=== PATIENT | male | born 1955 | race African-American/Black ===

== ENCOUNTER 2017-07-01 15:56 | Inpatient (IN) ==
[2017-07-01] MEDS ORDERED: THIAMINE INJ 100 MG, FOLIC ACID INJ 1 MG, MULTIVITAMIN INJ 10 ML in SODIUM CHLORIDE 0.4... IV ONE (16:14)
[2017-07-01 16:37] LABS: Basophils % 0.1 % (0.0-0.8); Hematocrit 33.7 VOL% (42.0-52.0); Hemoglobin 11.2 GM/DL (14.0-18.0); Immature Granulocytes % 0.5 %; Immature Granulocytes Absolute 0.04 #; Lymphocytes # 1.5 10*3/uL (1.4-4.0); Lymphocytes % 17.8 % (21.2-54.2); Mean Corpuscular HGB Conc 33.2 GM/DL (32-36); Mean Corpuscular Hemoglobin 25 PG (27-34); Mean Corpuscular Volume 75.2 FL (87-102); Mean Platelet Volume 9.7 FL (9.6-12.0); Monocytes # 1.6 10*3/uL (0.11-0.8); Neutrophils # 5.4 10*3/uL (1.4-7.4); Neutrophils % 62.6 % (38.7-73.9); Platelet Count 165 T/CUMM (130-400); Red Blood Count 4.48 MC/CUMM (3.8-5.5); Red Cell Distribution Width 16.5 % (9.3-17.3); White Blood Count 8.6 T/CUMM (4-12)
[2017-07-01 16:55] LABS: Barbiturates Screen,Urine Negative (Negative); Benzodiazepines Screen,Urine Negative (Negative); Cannabinoid Screen,Urine Negative (Negative); Opiate Screen,Urine Negative (Negative); Phencyclidine Screen,Urine Negative (Negative)
[2017-07-01 17:11] LABS: Blood Urea Nitrogen 20 MG/DL (7-18); Calcium 7.3 MG/DL (8.5-10.1); Glucose 121 MG/DL (74-106); Magnesium 1.5 MG/DL (1.8-2.4); Osmolality,Calculated 273.1 MOS/KG (273-304); Potassium 4.5 MMOL/L (3.5-5.1); Sodium 135 MMOL/L (136-145)
[2017-07-01 17:24] LABS: Band Neutrophils 3 % (0-10); Hypochromasia 1+; Lymphocytes 19 % (20-55); Platelet Estimate Normal; Segmented Neutrophils 67 % (50-85); Total Cells Counted 100
[2017-07-01 17:25] LABS: Microcytosis 1+
[2017-07-01] MEDS ORDERED: ACETAMINOPHEN 325 MG TABLET PO PRN (18:53)
[2017-07-01] MEDS ORDERED: ALBUTEROL 2.5 MG/3 ML NEB RESP TX PRN (18:53)
[2017-07-01] MEDS ORDERED: ONDANSETRON 4 MG/2 ML VIAL IV PRN (18:53)
[2017-07-01] MEDS ORDERED: PANTOPRAZOLE 40 MG VIAL IV SCH (19:00)
[2017-07-01] MEDS ORDERED: MAGNESIUM SULF RIDER 2 GM in PREMIX 1 EACH IV ONE (19:01)
[2017-07-01] MEDS ORDERED: GLUCAGON 1 MG VIAL IM PRN (19:03)
[2017-07-01] MEDS ORDERED: DEXTROSE 50% 25 GM/50 ML VIAL IV PRN (19:03)
--- NOTE | 2017-07-01 19:07 | Hospitalist History & Physical ---
Assessment and Plan (1) Metabolic acidosis Status: Acute Current Visit: No (2) Alcohol dependence Status: Chronic Current Visit: No (3) Diabetes mellitus Status: Chronic Current Visit: No (4) Hypertension Status: Chronic Current Visit: No (5) High anion gap metabolic acidosis Status: Resolved Current Visit: No (6) Acute kidney injury Status: Acute Current Visit: Yes (7) Dehydration Status: Acute Current Visit: Yes (8) Gastroenteritis Status: Acute Assessment and plan: Our plan for this patient will be admitting him to our service. He has a high anion gap acidosis. I will go to transfer him to the unit and monitor serial BMPs. On culture his stool if he has diarrhea again. We will repeat check labs and hopefully his acidosis and dehydration will resolve. Accu-Cheks before meals and at bedtime clear liquid diet. Since is complaining about these symptoms of vision changes I will get a CT scan of his head. Current Visit: Yes History of Present Illness Chief complaint: Nausea vomiting diarrhea History of present illness: Mr. Zuluaga is a 61 year old male with past medical history significant for starvation ketosis diabetes hypertension alcohol abuse who is in his normal state of health till yesterday. Patient reports that he got steak and started throwing up. He said he threw up all night long had diarrhea. He has since become dehydrated is a much vague complaints of chest pain after throwing up approximately 50 times. He says he has some vision changes at times. Patient cleaned himself up he is very weak and called EMS. Patient found to have multiple out lab abnormalities. I was consulted to admit him. Patient's going to go to alcohol rehab once he is discharged from this hospitalization. Home Medications Medication Instructions Recorded Confirmed Type Lisinopril 1 tablet PO DAILY 09/19/15 01/21/16 History Metformin HCl 1 tablet PO BID 09/19/15 01/21/16 History HYDROcodone/ACETAMIN 10-325 [[place] 1 tablet PO BID 10/16/15 01/21/16 History 10-325] Morphine ER Tab [Ms Contin] 15 mg PO BID 10/16/15 01/21/16 History Ondansetron [Ondansetron Odt] 4 mg PO Q4H PRN #10 tab.rapdis 03/07/16 Rx Colchicine [Colcrys] 0.6 mg PO DAILY #30 tablet 04/26/16 Rx chlordiazePOXIDE [Librium] 10 mg PO QID #21 capsule 11/29/16 Rx Allergies Allergy/AdvReac Type Severity Reaction Status Date / Time ibuprofen Allergy Intermediate Swelling Verified 11/25/16 17:39 of Lip/Tongue/Throat Medical,Surgical,& Family Hx - Medical History Cardio: History of: Hypertension Endocrine: History of: Diabetes Mellitus (NIDDM) Rheumatology: History of;: Gout Other: History of: Miscellaneous Medical Problems (chronic pain) - Surgical History Abdominal Surgeries: Surgical HX of: Abdominal Surgery - Family History Family History: Reports;: Family Diabetes, Family Heart Disease, Family Hypertension - Social History Smoking Status: Smoker, status unknown Frequency of Alcohol Use: Occasionally Type of Drug Use: None 12 point system: reviewed and no additional remarkable complaints except as stated Exam - Constitutional Vitals: Period Temp Pulse Resp BP Sys/Paulino Pulse Ox Last 24 Hr 98 F 96-99 20-20 138-144/78-86 98-99 General appearance: no acute distress - Head Head exam: Present: normal inspection - Eye Eye exam: Present: EOMI Pupils: Present: SIMI - ENT ENT exam: Present: normal exam - Neck Neck exam: Present: normal inspection - Respiratory Respiratory exam: Present: chest wall tenderness - Cardiovascular Cardiovascular exam: Present: regular rate and rhythm - GI/Abdominal GI/Abdominal exam: Present: normal bowel sounds - Extremities Exam Extremities exam: Present: normal inspection - Back Exam Back exam: Present: normal inspection - Neurological Exam Neurological exam: Present: alert, oriented X3 - Psychiatric Psychiatric exam: Present: normal affect, anxious - Skin Skin exam: Present: normal color Results - Labs CBC & BMP: 07/01/17 16:11 07/01/17 16:11
--- NOTE | 2017-07-01 19:08 | Emergency Department Note ---
Butch Traylor Brooke, am scribing for, and in the presence of, Sanjeev Poole M.D. 16:06. Virgilio Traylor Howard T, M.D., personally performed the services described in this documentation, ascribed by Shellie Rae in my presence, and it is both accurate and complete [id number] . Arrival - Arrival Chief Complaint: Nausea/Vomiting/Diarrhea Stated Complaint: nausea, vomitting and diarrhea Limitations: No Limitations Source: Patient, EMS, RN Notes Reviewed Time Seen by Provider: 07/01/17 15:57 - History of Present Illness HPI Narrative: Patient is a 61 year old male brought into the ED by EMS with c/o chest pain, vomiting, diarrhea, and weakness. Patient says around 0000, last night, "a friend" gave him some "alcohol to drink" and he says he started "shaking all over, went blind, and then started hurting in his chest and abdomen." His chest pain is located across the center of his chest. Patient says he has had about "50" episodes of vomiting and diarrhea. He says his stool is "dark" but there is no blood in it. He says the blindness only lasted for about "four or five minutes." He says he was unable to get any sleep last night. He has had similar symptoms, in the past, after drinking alcohol, and states "the doctor told me I had meth and antifreeze in me." Patient says he does drink alcohol about "two times a week." He has PMHx of HTN, NIDDM, and gout. Allergies/Adverse Reactions: Allergies Allergy/AdvReac Type Severity Reaction Status Date / Time ibuprofen Allergy Intermediate Swelling Verified 11/25/16 17:39 of Lip/Tongue/Throat Home Medications: Home Medications Medication Instructions Recorded Confirmed Type Lisinopril 1 tablet PO DAILY 09/19/15 01/21/16 History Metformin HCl 1 tablet PO BID 09/19/15 01/21/16 History HYDROcodone/ACETAMIN 10-325 [[place] 1 tablet PO BID 10/16/15 01/21/16 History 10-325] Morphine ER Tab [Ms Contin] 15 mg PO BID 10/16/15 01/21/16 History Ondansetron [Ondansetron Odt] 4 mg PO Q4H PRN #10 tab.rapdis 03/07/16 Rx Colchicine [Colcrys] 0.6 mg PO DAILY #30 tablet 04/26/16 Rx chlordiazePOXIDE [Librium] 10 mg PO QID #21 capsule 11/29/16 Rx Review of System - Review of System 12 point system: reviewed and no additional remarkable complaints except as stated - Review of System Constitutional: Absent: fever Eyes: Present: vision change (temporary blindness) Respiratory: Absent: respiratory distress Cardiovascular: Present: chest pain Gastrointestinal: Present: abdominal pain, nausea, vomiting, diarrhea. Absent: hematochezia Skin: Absent: rash Neurological: Present: weakness (generalized) Medical,Surgical,& Family Hx - Medical History Cardio: History of: Hypertension Endocrine: History of: Diabetes Mellitus (NIDDM) Rheumatology: History of;: Gout Other: History of: Miscellaneous Medical Problems (chronic pain) - Surgical History Abdominal Surgeries: Surgical HX of: Abdominal Surgery - Family History Family History: Reports;: Family Diabetes, Family Heart Disease, Family Hypertension - Social History Smoking Status: Smoker, status unknown Exam Vital Signs: Vital Signs Temperature 98 F 07/01/17 15:56 Pulse Rate 96 H 07/01/17 17:41 Respiratory Rate 20 07/01/17 17:41 Blood Pressure 138/86 07/01/17 17:41 O2 Sat by Pulse Oximetry 99 07/01/17 17:41 - General General appearance: alert, in no apparent distress - Head Head exam: Present: atraumatic, normocephalic - Eye Eye exam: Present: normal appearance, PERRL, EOMI - ENT ENT exam: Present: normal exam - Neck Neck exam: Present: normal inspection - Chest Chest inspection: Present: normal inspection, symmetric chest wall rise - Respiratory Respiratory exam: Present: normal lung sounds bilaterally - Cardiovascular Cardiovascular exam: Present: regular rate, normal rhythm, normal heart sounds - Abdominal Exam Abdominal exam: Present: soft, normal bowel sounds. Absent: distention, tenderness - Extremities Exam Extremities exam: Present: normal inspection - Back Exam Back exam: Present: normal inspection - Neurological Exam Neurological exam: Present: alert, oriented X3 - Psychiatric Psychiatric exam: Present: normal affect, normal mood - Skin Skin exam: Present: warm, dry, intact, normal color Course Course Narrative: Medical decision-making patient was evaluated by hospitalist for admission, history of alcoholic ketoacidosis actually in the ICU in the past, creatinine is up and appears acidotic but otherwise stable probably needs some fluids and close observation and rehydration overnight. Results - Labs CBC & BMP: 07/01/17 16:11 07/01/17 16:11 Lab Results: I have reviewed the patients labs Labs: Laboratory Tests 07/01/17 16:11 Urine Opiates Screen Negative Ur Barbiturates Screen Negative Ur Phencyclidine Scrn Negative U Amphetamine/Methamph Negative U Benzodiazepines Scrn Negative U Cocaine Metab Screen Negative U Cannabinoids Screen Negative Laboratory Tests 07/01/17 07/01/17 07/01/17 16:11 16:11 17:11 Total Counted 100 Segmented Neutrophils 67 Band Neutrophils 3 Lymphocytes 19 L Monocytes 11 Platelet Estimate Normal Hypochromasia 1+ Microcytosis 1+ Sodium 135 L Potassium 4.5 Chloride 97 L Carbon Dioxide 18 L Anion Gap 24.5 H BUN 20 H Creatinine 2.80 H GFR Calculation 28 BUN/Creatinine Ratio 7.00 Glucose 121 H Calculated Osmolality 273.1 Calcium 7.3 L Magnesium 1.5 L b-Hydroxybutyric mmol/L 5.5 H Serum Alcohol < 15 L Disposition Clinical Impression: Diabetes mellitus, Alcohol dependence, Metabolic acidosis Case discussed with: patient Disposition: Still a Patient Condition: Stable Time of Disposition: 19:07
--- NOTE | 2017-07-01 20:56 | CT Report ---
CT head/brain wo con Indication: Vision changes. Specific vision changes are not specified. Comparison: None. Technique: CT of the brain was performed without administration of intravenous contrast. The CT examination was performed using one or more of the following dose reduction techniques: Automatic exposure control, adjustment of the mA and kV according to patient size, use of acute or iterative reconstruction techniques. Findings: There is no evidence of acute intracranial mass, hemorrhage, or infarction. Generalized cerebral atrophy is present. Areas of decreased attenuation within the periventricular white matter and cerebral white matter are present which could be compatible with microvascular ischemia. The basal cisterns are patent. No significant abnormality is demonstrated to involve the posterior fossa or cerebellum. Orbits and globes demonstrate no evidence of significant pathology. The paranasal sinuses are clear. No significant abnormality is demonstrated to involve the mastoid air cells. The calvarium and overlying soft tissues demonstrate no evidence of acute pathology. Impression: 1. No CT evidence of acute intracranial pathology. MRI brain without intravenous contrast administration is recommended for exclusion of acute ischemia. 07/01/2017 8:53 PM PROCEDURE INTERPRETED AT [facility] DEPARTMENT OF RADIOLOGY Final Report Signed by: Dr. Austin Reddy
[2017-07-01] MEDS: SODIUM ACETATE 50 MEQ in SODIUM CHLORIDE 0.45% 975 ML IV SCH (21:26)
[2017-07-01 21:31] LABS: Calcium 7.5 MG/DL (8.5-10.1); Potassium 4.3 MMOL/L (3.5-5.1)
[2017-07-01] MEDS: LORazepam 2 MG/1 ML VIAL IV PRN (21:59)
[2017-07-01] MEDS: INSULIN REGULAR 100 UNIT/ML SUBCUT SCH (23:01)
[2017-07-02 03:20] LABS: Calcium 7.6 MG/DL (8.5-10.1); Osmolality,Calculated 272.1 MOS/KG (273-304); Potassium 3.8 MMOL/L (3.5-5.1)
[2017-07-02] MEDS: SODIUM ACETATE 50 MEQ in SODIUM CHLORIDE 0.45% 975 ML IV SCH ×2 (03:30→06:43)
[2017-07-02 04:08] LABS: Folate > 24.0 NG/ML (5.4-24.0); Vitamin B12 814 PG/ML (211-911)
[2017-07-02] MEDS: INSULIN REGULAR 100 UNIT/ML SUBCUT SCH ×4 (07:47→21:00)
[2017-07-02] MEDS ORDERED: FOLIC ACID 1 MG TABLET PO SCH (09:00)
[2017-07-02] MEDS: THIAMINE 100 MG TABLET PO SCH (09:03)
[2017-07-02] MEDS: MULTIVITAMIN (CENTRUM) TABLET PO SCH (09:03)
--- NOTE | 2017-07-02 09:43 | Hospitalist Progress Note ---
Assessment and Plan (1) Acute kidney injury Status: Acute Assessment and plan: Continue IV fluids. Renal function improving. Likely secondary to dehydration. Current Visit: Yes (2) Dehydration Status: Acute Assessment and plan: Improving with IV fluids. Current Visit: Yes (3) Gastroenteritis Status: Resolved Assessment and plan: Symptoms appear to have resolved. Advance diet as tolerated. Current Visit: Yes (4) Diabetes mellitus Status: Chronic Assessment and plan: Metformin on hold secondary to acute kidney injury. Continue Accu-Cheks and sliding scale insulin before meals and at bedtime. Current Visit: Yes Qualifiers: Diabetes mellitus type: type 2 (5) Alcohol dependence Status: Chronic Current Visit: Yes Qualifiers: Substance use status: uncomplicated Qualified Code(s): F10.20 - Alcohol dependence, uncomplicated (6) Metabolic acidosis Status: Resolved Assessment and plan: Resolved with bicarb infusion overnight. Likely secondary to volume depletion and acute kidney injury. Precipitated by diarrhea and gastroenteritis. Current Visit: Yes (7) Vision changes Status: Acute Assessment and plan: Carotid ultrasound ordered to evaluate for carotid stenosis causing vision changes. No evidence of stroke on CT. Symptoms have resolved. This could all be related to his metabolic acidosis and acute kidney injury with dehydration secondary to gastroenteritis and diarrhea. Current Visit: Yes Hospitalist: Subjective Interval history: Patient seen and examined. No acute events overnight. Case discussed with nursing staff. Labs reviewed. Mr. Zuluaga was admitted to the intensive care unit with a metabolic acidosis and diarrhea. He has improved with IV fluid hydration. His acute kidney injury has also improved. His mental status has returned to normal. He is being transferred to the floor with repeat labs in the a.m. His symptoms have resolved. A carotid ultrasound has been ordered and results are pending Exam - Constitutional Vitals: Period Temp Pulse Resp BP Sys/Paulino Pulse Ox Last 24 Hr 97.5 F-99.1 F 77-109 15-23 95-148/48-86 94-100 Exam: Constitutional System: No distress. No tremulousness. Head: Normocephalic, atraumatic. Ears, Nose and Throat System: No pain or tenderness. No epistaxis or discharge Eyes System: Pupils equal, round, and reactive. Extraocular muscles intact. Neck: Supple, without adenopathy, No jugular venous distention. No thyromegaly, neck mass, or prior surgery apparent. Respiratory System: Chest clear to auscultation. Cardiovascular System: Heart with regular rate and rhythm. No murmur. GI System: Abdomen soft, nontender. Normo active bowel sounds present. Musculoskeletal System: limbs with no pedal edema. Full distal pulses. Neurological System: No discernable sensory deficit. No aphasia Psychiatric System: Conversation is rational Results - Labs CBC & BMP: 07/01/17 16:11 07/02/17 02:47 Lab Results: I have reviewed the past 24 hour labs - Diagnostic Findings Procedure: Chest x-ray: image reviewed by me, report reviewed by me, CT: image reviewed by me, report reviewed by me, Ultrasound: pending
[2017-07-02] MEDS: LACTATED RINGERS 1,000 ML IV SCH ×2 (09:55→19:21)
--- NOTE | 2017-07-02 10:16 | Ultrasound Report ---
US carotid duplex BI Indication: Vision changes. Comparison: None. Technique: Multiple longitudinal and transverse real-time sonographic images of the bilateral carotid arterial systems are obtained with grayscale, spectral, and color Doppler analysis. Findings: Peak systolic velocities within the right CCA, proximal ICA, and distal ICA are 78, 48, and 56 cm/s respectively. Peak systolic velocities within the left CCA, proximal ICA, and distal ICA are 65, 43, and 78 cm/s respectively. ICA/CCA ratios on the right and left are 0.7 and 0.2 respectively. Antegrade flow demonstrated within the bilateral vertebral arteries. Grayscale imaging demonstrates mild bilateral atherosclerotic plaque. IMPRESSION: No convincing sonographic evidence of significant (50% or greater) narrowing of either cervical internal carotid artery. Indirect NASCET criteria utilized. PROCEDURE INTERPRETED AT [facility] DEPARTMENT OF RADIOLOGY Final Report Signed by: Dr Juan Antonio Estrada
[2017-07-02] MEDS: LORazepam 2 MG/1 ML VIAL IV PRN (21:02)
[2017-07-03] MEDS: LACTATED RINGERS 1,000 ML IV SCH (05:21)
[2017-07-03 07:36] LABS: Calcium 8.3 MG/DL (8.5-10.1); Magnesium 1.7 MG/DL (1.8-2.4); Osmolality,Calculated 272.7 MOS/KG (273-304); Potassium 3.3 MMOL/L (3.5-5.1)
[2017-07-03] MEDS ORDERED: PANTOPRAZOLE 40 MG TABLET PO SCH (09:00)
[2017-07-03] MEDS ORDERED: traZODone 50 MG TABLET PO SCH (09:00)
[2017-07-03] MEDS: INSULIN REGULAR 100 UNIT/ML SUBCUT SCH ×2 (09:16→11:47)
[2017-07-03] MEDS: THIAMINE 100 MG TABLET PO SCH (09:18)
[2017-07-03] MEDS: MULTIVITAMIN (CENTRUM) TABLET PO SCH (09:18)
[2017-07-03] MEDS ORDERED: POTASSIUM CHLORIDE 20 MEQ TABLET PO ONE (09:59)
--- NOTE | 2017-07-03 10:04 | Discharge Summary ---
Hospital Course - Hospital Course Hospital Course: Mr Zuluaga presented with RICKY from dehydration following gastroenteritis. He feels much better after rehydration and his renal failure has resolved. He is an alcoholic and is interested in inpatient rehab at [facility]. We are waiting to know if they have a bed- he was accepted yesterday. His metabolic acidosis started from his diarrhea and was corrected with bicarb. He had normal carotid dopplers. His med list includes narcotics which he does not take any longer as the prescriptions ran out months ago, so he should not withdraw from them. - Time spent with patient Time with patient DS: Greater than 30 minutes (33 minutes spent discharge planning, exam, documentation, medicine reconciliation) Diagnosis - Discharge Diagnosis (1) Acute kidney injury Status: Resolved (2) Dehydration Status: Resolved (3) Gastroenteritis Status: Resolved (4) Diabetes mellitus Status: Chronic (5) Alcohol dependence Status: Chronic (6) Metabolic acidosis Status: Resolved (7) Vision changes Status: Resolved Specialty Discharge - Follow Up or Referrals Follow up with: Your, PCP [Other] (when out of alcohol rehab) Discharge Plan - Discharge Data Disposition: Disch/Xfer-Ip Rehab Fac Condition at Discharge: Stable Discharge Diet: advance to your usual diet Activity: resume usual activities as tolerated - Discharge Medications New Thiamine Tab [Vitamin B1 Tab] 100 mg PO DAILY tablet Multivitamin (Centrum) [Centrum Tab] 1 tablet PO DAILY tablet Pantoprazole Tab [Protonix Tab] 40 mg PO DAILY tablet Continue Metformin HCl 1 tablet PO BID Lisinopril 1 tablet PO DAILY Colchicine [Colcrys] 0.6 mg PO DAILY #30 tablet Trazodone HCl 100 mg PO DAILY Discontinued Morphine ER Tab [Ms Contin] 15 mg PO BID HYDROcodone/ACETAMIN 10-325 [[place] 10-325] 1 tablet PO BID Ondansetron [Ondansetron Odt] 4 mg PO Q4H PRN #10 tab.rapdis PRN Reason: Nausea chlordiazePOXIDE [Librium] 10 mg PO QID #21 capsule - Follow Up or Referral Follow Up: Your, PCP [Other] (when out of alcohol rehab) - Forms/Instructions Instructions: Dehydration (DC), Abuse of Alcohol (DC) Exam - Constitutional Vitals: Period Temp Pulse Resp BP Sys/Paulino Pulse Ox Last 24 Hr 98.0 F-99.2 F 80-99 15-22 107-154/66-81 93-100 General appearance: normal weight, no acute distress - Head Head exam: Present: normocephalic, atraumatic - Eye Eye exam: Present: EOMI. Absent: scleral icterus - Respiratory Respiratory exam: Present: clear to auscultation bilaterally - Cardiovascular Cardiovascular exam: Present: regular rate and rhythm - GI/Abdominal GI/Abdominal exam: Present: normal bowel sounds, soft. Absent: tenderness - Extremities Exam Extremities exam: Absent: edema Discharge Results Procedures and tests throughout hospitalization: Pending Orders 07/01/17 16:11 Ethylene Glycol Serum Stat 07/01/17 19:02 Stool Culture Routine Labs on day of discharge: Labs from last 24 hours 07/03/17 07/03/17 07/02/17 07:33 06:22 19:54 Sodium 138 Potassium 3.3 L Chloride 101 Carbon Dioxide 29 Anion Gap 11.3 BUN 6 L Creatinine 0.80 GFR Calculation 116 BUN/Creatinine Ratio 7.00 Glucose 99 POC Glucose 95 311 H Calculated Osmolality 272.7 L Calcium 8.3 L Magnesium 1.7 L 07/02/17 07/02/17 07/02/17 15:02 11:37 10:26 Sodium Potassium Chloride Carbon Dioxide Anion Gap BUN Creatinine GFR Calculation BUN/Creatinine Ratio Glucose POC Glucose 196 H 145 H 186 H Calculated Osmolality Calcium Magnesium DS: Provider Date of admission: 07/01/17 18:53 Primary care physician: . No PCP Attending physician on admission: Asim Disla MD Consults: 07/01/17 20:09 Consult to Dietitian [CONS] Routine Reason for Dietitian: Dietary Consult 07/02/17 08:19 Consult to Case Mgmt/Social Srvs [CONS] Routine Reason for Case Mgmt/Social Srvs: Other Consult Comment: pat request placement with [facility] for ETOH abuse Discharging clinician: Tanika Gibson MD
[2017-07-03 11:58] VITALS: BP 112/68
== END 2017-07-03 15:31 | DRG 683 ==
LOC: EDBD → EDUNIT# → N.ED 15:56 → SUATTDRO 18:53 → N.EDINP 18:53 → N.ICU 19:51 → N.5E 07-02 15:01
PROVIDERS: ADMIT Internal Medicine; ATTEND Internal Medicine

== ENCOUNTER 2018-03-11 12:03 | Inpatient (IN) ==
[2018-03-11 14:08] LABS: Basophils % 0.1 % (0.0-0.8); Hematocrit 46.1 VOL% (42.0-52.0); Hemoglobin 14.2 GM/DL (14.0-18.0); Immature Granulocytes % 0.9 %; Immature Granulocytes Absolute 0.17 #; Lymphocytes # 0.6 10*3/uL (1.4-4.0); Lymphocytes % 3.2 % (21.2-54.2); Mean Corpuscular HGB Conc 30.8 GM/DL (32-36); Mean Corpuscular Hemoglobin 19 PG (27-34); Mean Corpuscular Volume 61.3 FL (87-102); Mean Platelet Volume 9.3 FL (9.6-12.0); Monocytes # 1.1 10*3/uL (0.11-0.8); Monocytes % 5.9 % (1.7-12.7); Neutrophils # 16.6 10*3/uL (1.4-7.4); Neutrophils % 89.9 % (38.7-73.9); Platelet Count 330 T/CUMM (130-400); Red Blood Count 7.52 MC/CUMM (3.8-5.5); Red Cell Distribution Width 24.9 % (9.3-17.3); White Blood Count 18.5 T/CUMM (4-12)
[2018-03-11 14:16] LABS: Lymphocytes 1 % (20-55); Platelet Estimate Adequate; Segmented Neutrophils 93 % (50-85); Total Cells Counted 100
[2018-03-11 14:17] LABS: Giant Platelets Few; Hypochromasia 1+; Microcytosis 1+
[2018-03-11 14:24] LABS: Albumin 3.2 G/DL (3.4-5.0); Bilirubin,Total 0.9 MG/DL (0.2-1.0); Calcium 8.5 MG/DL (8.5-10.1); Osmolality,Calculated 288.9 MOS/KG (273-304); Total Protein 7.7 G/DL (6.4-8.3)
[2018-03-11] MEDS ORDERED: SODIUM CHLORIDE 0.9% 1,000 ML IV STA (14:42)
[2018-03-11] MEDS ORDERED: ONDANSETRON 4 MG/2 ML VIAL IV STA (14:42)
[2018-03-11] MEDS ORDERED: INSULIN REGULAR 100 UNIT/ML IV STA (14:42)
[2018-03-11] MEDS ORDERED: INSULIN REGULAR 100 UNIT/ML ONE (14:45)
[2018-03-11] MEDS ORDERED: FLUCONAZOLE INJ 200 MG in PREMIX 1 EACH IV ONE (14:51)
[2018-03-11] MEDS ORDERED: ONDANSETRON 4 MG/2 ML VIAL ONE (15:27)
[2018-03-11] MEDS ORDERED: ONDANSETRON 4 MG/2 ML VIAL IV PRN (15:56)
[2018-03-11] MEDS ORDERED: GLUCAGON 1 MG VIAL IM PRN ×2 (15:56)
[2018-03-11] MEDS ORDERED: DEXTROSE 50% 25 GM/50 ML VIAL IV PRN ×2 (15:56)
[2018-03-11] MEDS: INSULIN REGULAR 100 UNIT/ML SUBCUT SCH ×2 (19:55→20:20)
[2018-03-11] MEDS: metFORMIN 500 MG TABLET PO SCH (19:57)
[2018-03-11] MEDS: DEXAMETHASONE 4 MG TABLET PO SCH ×2 (19:58→20:20)
[2018-03-11] MEDS: THIAMINE 100 MG TABLET PO SCH (20:20)
[2018-03-11] MEDS: SODIUM CHLORIDE 0.9% 1,000 ML IV SCH (20:27)
[2018-03-11] MEDS ORDERED: INSULIN GLARGINE 100 UNIT/ML SUBCUT SCH (21:00)
[2018-03-11 22:11] LABS: Apearance,Urine CLEAR (Clear); Bilirubin,Urine Negative (Negative); Blood, Urine Small mg/dL (Negative); Glucose,Urine (UA) >=500 mg/dL (Negative); Ketones,Urine Negative (Negative); Nitrite,Urine Negative (Negative); Protein,Urine Negative; RBC,Urine 2 /HPF (0-4); Squamous Epithelial Cell,Urine Occasional /HPF (0-10); Urine Color Straw (Yellow); Urine Specific Gravity 1.022 (1.001-1.035); Urine Urobilinogen < 2.0 EU/DL (0.2-1.0); WBC,Urine <1 /HPF (0-6)
[2018-03-12] MEDS: SODIUM CHLORIDE 0.9% 1,000 ML IV SCH ×3 (05:15→22:33)
[2018-03-12 06:21] LABS: Basophils % 0.1 % (0.0-0.8); Hematocrit 39.2 VOL% (42.0-52.0); Hemoglobin 12.8 GM/DL (14.0-18.0); Immature Granulocytes % 0.8 %; Immature Granulocytes Absolute 0.11 #; Lymphocytes # 0.5 10*3/uL (1.4-4.0); Lymphocytes % 3.8 % (21.2-54.2); Mean Corpuscular HGB Conc 32.7 GM/DL (32-36); Mean Corpuscular Hemoglobin 19 PG (27-34); Mean Corpuscular Volume 59.1 FL (87-102); Mean Platelet Volume 9.9 FL (9.6-12.0); Monocytes # 0.7 10*3/uL (0.11-0.8); Neutrophils % 90.3 % (38.7-73.9); Platelet Count 244 T/CUMM (130-400); Red Blood Count 6.63 MC/CUMM (3.8-5.5); Red Cell Distribution Width 24.2 % (9.3-17.3); White Blood Count 13.3 T/CUMM (4-12)
[2018-03-12 06:40] LABS: Hypochromasia 2+; Lymphocytes 4 % (20-55); Microcytosis 1+; Segmented Neutrophils 91 % (50-85); Target Cells Slight; Total Cells Counted 100
[2018-03-12 06:41] LABS: Ovalocytes Slight; Platelet Estimate Normal
[2018-03-12 06:53] LABS: Albumin 2.5 G/DL (3.4-5.0); Bilirubin,Total 1.2 MG/DL (0.2-1.0); Osmolality,Calculated 281.2 MOS/KG (273-304); Potassium 4.8 MMOL/L (3.5-5.1); Total Protein 6.2 G/DL (6.4-8.3)
[2018-03-12] MEDS: PANTOPRAZOLE 40 MG TABLET PO SCH (08:42)
[2018-03-12] MEDS: metFORMIN 500 MG TABLET PO SCH ×2 (08:42→17:20)
[2018-03-12] MEDS: LISINOPRIL 2.5 MG TABLET PO SCH (08:42)
[2018-03-12] MEDS: THIAMINE 100 MG TABLET PO SCH ×2 (08:43→21:44)
[2018-03-12] MEDS: METOPROLOL SUCCINATE XL 25 MG TABLET PO SCH (08:43)
[2018-03-12] MEDS: GABAPENTIN 300 MG CAPSULE PO SCH (08:43)
[2018-03-12] MEDS: DEXAMETHASONE 4 MG TABLET PO SCH ×4 (08:43→21:44)
[2018-03-12] MEDS: INSULIN REGULAR 100 UNIT/ML SUBCUT SCH ×4 (08:43→20:26)
[2018-03-12] MEDS: FLUCONAZOLE INJ 200 MG in PREMIX 1 EACH IV SCH (16:07)
[2018-03-12] MEDS ORDERED: INSULIN GLARGINE 100 UNIT/ML SUBCUT SCH (21:00)
[2018-03-13] MEDS: SODIUM CHLORIDE 0.9% 1,000 ML IV SCH ×3 (06:24→23:36)
[2018-03-13] MEDS: INSULIN REGULAR 100 UNIT/ML SUBCUT SCH ×4 (08:55→21:17)
[2018-03-13] MEDS: DEXAMETHASONE 4 MG TABLET PO SCH ×4 (08:57→20:19)
[2018-03-13] MEDS: PANTOPRAZOLE 40 MG TABLET PO SCH (08:57)
[2018-03-13] MEDS: METOPROLOL SUCCINATE XL 25 MG TABLET PO SCH (08:57)
[2018-03-13] MEDS: THIAMINE 100 MG TABLET PO SCH ×2 (08:57→20:19)
[2018-03-13] MEDS: LISINOPRIL 2.5 MG TABLET PO SCH (08:57)
[2018-03-13] MEDS: metFORMIN 500 MG TABLET PO SCH ×2 (08:57→16:41)
[2018-03-13] MEDS: GABAPENTIN 300 MG CAPSULE PO SCH (08:57)
[2018-03-13] MEDS ORDERED: INSULIN NPH 100 UNIT/ML SUBCUT SCH (16:30)
[2018-03-13] MEDS: FLUCONAZOLE INJ 200 MG in PREMIX 1 EACH IV SCH (16:40)
[2018-03-13] MEDS: INSULIN NPH 100 UNIT/ML SUBCUT SCH (16:43)
[2018-03-13] MEDS: ZALEPLON 5 MG CAPSULE PO PRN (21:17)
[2018-03-14] MEDS: SODIUM CHLORIDE 0.9% 1,000 ML IV SCH ×3 (01:03→16:59)
[2018-03-14] MEDS: traMADol 50 MG TABLET PO PRN (05:02)
[2018-03-14 06:16] LABS: Calcium 7.8 MG/DL (8.5-10.1); Osmolality,Calculated 283.2 MOS/KG (273-304); Potassium 4.2 MMOL/L (3.5-5.1)
[2018-03-14] MEDS: INSULIN REGULAR 100 UNIT/ML SUBCUT SCH ×4 (08:22→21:26)
[2018-03-14] MEDS: INSULIN NPH 100 UNIT/ML SUBCUT SCH ×2 (08:22→16:59)
[2018-03-14] MEDS: metFORMIN 500 MG TABLET PO SCH ×2 (08:23→16:59)
[2018-03-14] MEDS: GABAPENTIN 300 MG CAPSULE PO SCH (08:23)
[2018-03-14] MEDS: DEXAMETHASONE 4 MG TABLET PO SCH ×2 (08:23→21:26)
[2018-03-14] MEDS: LISINOPRIL 2.5 MG TABLET PO SCH (08:24)
[2018-03-14] MEDS: METOPROLOL SUCCINATE XL 25 MG TABLET PO SCH (08:24)
[2018-03-14] MEDS: THIAMINE 100 MG TABLET PO SCH ×2 (08:24→22:55)
[2018-03-14] MEDS: PANTOPRAZOLE 40 MG TABLET PO SCH (08:24)
[2018-03-14] MEDS ORDERED: INSULIN NPH 100 UNIT/ML SUBCUT SCH (10:27)
[2018-03-14] MEDS: NICOTINE 14 MG/24 HR PATCH TRANSDERM SCH (13:02)
[2018-03-14] MEDS: MORPHINE ER 15 MG TABLET PO SCH ×2 (13:02→21:25)
[2018-03-14] MEDS: NYSTATIN 500,000 UNIT/5 ML UDCUP SWISH/SWAL SCH ×2 (16:00→21:26)
[2018-03-14] MEDS: FLUCONAZOLE INJ 200 MG in PREMIX 1 EACH IV SCH (16:00)
[2018-03-14] MEDS: ZALEPLON 5 MG CAPSULE PO PRN (21:26)
[2018-03-15] MEDS: SODIUM CHLORIDE 0.9% 1,000 ML IV SCH ×3 (01:08→17:10)
[2018-03-15] MEDS: metFORMIN 500 MG TABLET PO SCH ×2 (09:14→17:11)
[2018-03-15] MEDS: GABAPENTIN 300 MG CAPSULE PO SCH (09:14)
[2018-03-15] MEDS: LISINOPRIL 2.5 MG TABLET PO SCH (09:14)
[2018-03-15] MEDS: THIAMINE 100 MG TABLET PO SCH ×2 (09:14→21:35)
[2018-03-15] MEDS: METOPROLOL SUCCINATE XL 25 MG TABLET PO SCH (09:14)
[2018-03-15] MEDS: INSULIN REGULAR 100 UNIT/ML SUBCUT SCH ×4 (09:15→21:34)
[2018-03-15] MEDS: PANTOPRAZOLE 40 MG TABLET PO SCH (09:15)
[2018-03-15] MEDS: DEXAMETHASONE 4 MG TABLET PO SCH ×2 (09:15→21:35)
[2018-03-15] MEDS: NYSTATIN 500,000 UNIT/5 ML UDCUP SWISH/SWAL SCH ×4 (09:15→21:34)
[2018-03-15] MEDS: NICOTINE 14 MG/24 HR PATCH TRANSDERM SCH (09:15)
[2018-03-15] MEDS: MORPHINE ER 15 MG TABLET PO SCH ×2 (09:15→21:35)
[2018-03-15] MEDS: INSULIN NPH 100 UNIT/ML SUBCUT SCH ×2 (09:16→17:11)
[2018-03-15] MEDS: FLUCONAZOLE INJ 200 MG in PREMIX 1 EACH IV SCH (17:11)
[2018-03-16] MEDS: SODIUM CHLORIDE 0.9% 1,000 ML IV SCH ×2 (02:17→10:27)
[2018-03-16] MEDS: INSULIN REGULAR 100 UNIT/ML SUBCUT SCH ×4 (08:18→21:24)
[2018-03-16] MEDS: THIAMINE 100 MG TABLET PO SCH ×2 (09:37→21:24)
[2018-03-16] MEDS: GABAPENTIN 300 MG CAPSULE PO SCH (09:37)
[2018-03-16] MEDS: LISINOPRIL 2.5 MG TABLET PO SCH (09:37)
[2018-03-16] MEDS: DEXAMETHASONE 4 MG TABLET PO SCH ×2 (09:37→21:26)
[2018-03-16] MEDS: METOPROLOL SUCCINATE XL 25 MG TABLET PO SCH (09:37)
[2018-03-16] MEDS: NYSTATIN 500,000 UNIT/5 ML UDCUP SWISH/SWAL SCH ×4 (09:38→21:26)
[2018-03-16] MEDS: NICOTINE 14 MG/24 HR PATCH TRANSDERM SCH (09:38)
[2018-03-16] MEDS: PANTOPRAZOLE 40 MG TABLET PO SCH (09:38)
[2018-03-16] MEDS: INSULIN NPH 100 UNIT/ML SUBCUT SCH ×2 (09:39→17:44)
[2018-03-16] MEDS: MORPHINE ER 15 MG TABLET PO SCH ×2 (09:40→21:25)
[2018-03-16] MEDS: metFORMIN 500 MG TABLET PO SCH ×2 (09:43→17:45)
[2018-03-16] MEDS: LACTULOSE 20 GM/30 ML UDCUP PO SCH ×3 (13:12→22:16)
[2018-03-16] MEDS: ZALEPLON 5 MG CAPSULE PO PRN (21:25)
[2018-03-16] MEDS: POLYETHYLENE GLYCOL POWDER 17 GM PACK PO SCH (22:16)
[2018-03-16] MEDS: DOCUSATE SODIUM 100 MG CAPSULE PO SCH (22:17)
[2018-03-17] MEDS: LACTULOSE 20 GM/30 ML UDCUP PO SCH ×3 (00:20→08:42)
[2018-03-17] MEDS: traMADol 50 MG TABLET PO PRN (06:58)
[2018-03-17] MEDS: INSULIN REGULAR 100 UNIT/ML SUBCUT SCH (08:23)
[2018-03-17] MEDS: POLYETHYLENE GLYCOL POWDER 17 GM PACK PO SCH (08:31)
[2018-03-17] MEDS: METOPROLOL SUCCINATE XL 25 MG TABLET PO SCH (08:31)
[2018-03-17] MEDS: NYSTATIN 500,000 UNIT/5 ML UDCUP SWISH/SWAL SCH (08:31)
[2018-03-17] MEDS: metFORMIN 500 MG TABLET PO SCH (08:31)
[2018-03-17] MEDS: LISINOPRIL 2.5 MG TABLET PO SCH (08:31)
[2018-03-17] MEDS: PANTOPRAZOLE 40 MG TABLET PO SCH (08:32)
[2018-03-17] MEDS: THIAMINE 100 MG TABLET PO SCH (08:32)
[2018-03-17] MEDS: DEXAMETHASONE 4 MG TABLET PO SCH (08:32)
[2018-03-17] MEDS: GABAPENTIN 300 MG CAPSULE PO SCH (08:32)
[2018-03-17] MEDS: MORPHINE ER 15 MG TABLET PO SCH (08:32)
[2018-03-17] MEDS: DOCUSATE SODIUM 100 MG CAPSULE PO SCH (08:32)
[2018-03-17] MEDS: NICOTINE 14 MG/24 HR PATCH TRANSDERM SCH (08:33)
[2018-03-17] MEDS: INSULIN NPH 100 UNIT/ML SUBCUT SCH (08:40)
[2018-03-17] MEDS ORDERED: FLUCONAZOLE 200 MG TABLET PO SCH (09:00)
[2018-03-17] MEDS ORDERED: INSULIN NPH 100 UNIT/ML SUBCUT SCH (09:45)
[2018-03-17 12:03] VITALS: BP 158/99
== END 2018-03-17 12:50 | disposition home health service (06) | DRG 637 ==
LOC: N.ED 12:03 → N.EDINP 15:05 → N.4E 18:08
PROVIDERS: ADMIT Hospitalist; ATTEND Hospitalist

== ENCOUNTER 2018-07-22 20:20 | Inpatient (IN) ==
[2018-07-22] MEDS ORDERED: MEROPENEM 1,000 MG in SODIUM CHLORIDE 0.9% 100 ML IV STA (20:59)
[2018-07-22] MEDS ORDERED: SODIUM CHLORIDE 0.9% 1,000 ML IV STA ×2 (20:59→23:08)
[2018-07-22 22:41] LABS: Lactic Acid 4.9 MMOL/L (0.4-2.0)
[2018-07-22 22:50] LABS: INR 1.6; PT Patient Result 16.3 SECS; Partial Thromboplastin Time 36.7 SECS (0-40)
[2018-07-22 22:51] LABS: Alanine Aminotransferase 40 U/L (16-61); Albumin 2.4 G/DL (3.4-5.0); Alkaline Phosphatase 86 U/L (45-117); Aspartate Amino Transferase 92 U/L (0-37); Blood Urea Nitrogen 115 MG/DL (7-18); CKMB % 0.7 %; Calcium 8.4 MG/DL (8.5-10.1); Glucose 120 MG/DL (74-106); Osmolality,Calculated 316.4 MOS/KG (273-304); Sodium 140 MMOL/L (136-145)
[2018-07-22 22:58] LABS: Potassium 6.2 MMOL/L (3.5-5.1)
[2018-07-22] MEDS ORDERED: ALBUTEROL NEB SOLN 5 MG/ML 20 ML/BOTTLE CONT NEB STA (23:07)
[2018-07-22] MEDS ORDERED: INSULIN REGULAR 100 UNIT/ML IV STA (23:07)
[2018-07-22] MEDS ORDERED: DEXTROSE 50% 25 GM/50 ML VIAL IV STA (23:07)
[2018-07-22] MEDS ORDERED: CALCIUM CHLORIDE 1,000 MG/10 ML SYRINGE IV STA (23:07)
[2018-07-22 23:15] LABS: Ammonia < 10 UMOL/L (11-32)
[2018-07-22 23:43] LABS: Immature Granulocytes % 4.8 %; Immature Granulocytes Absolute 0.01 #; Lymphocytes # 0.1 10*3/uL (1.4-4.0); Lymphocytes % 57.1 % (21.2-54.2); Mean Corpuscular HGB Conc 31.6 GM/DL (32-36); Mean Corpuscular Hemoglobin 24 PG (27-34); Mean Corpuscular Volume 74.5 FL (87-102); Monocytes % 9.5 % (1.7-12.7); Neutrophils # 0.1 10*3/uL (1.4-7.4); Neutrophils % 28.6 % (38.7-73.9); Red Blood Count 2.04 MC/CUMM (3.8-5.5); Red Cell Distribution Width 18.3 % (9.3-17.3)
[2018-07-22 23:54] LABS: White Blood Count 0.2 T/CUMM (4-12)
[2018-07-22 23:55] LABS: Hematocrit 15.2 VOL% (42.0-52.0); Hemoglobin 4.8 GM/DL (14.0-18.0)
[2018-07-22 23:56] LABS: Platelet Count 7 T/CUMM (130-400)
[2018-07-23] MEDS ORDERED: ACETAMINOPHEN 325 MG TABLET PO PRN (00:03)
[2018-07-23] MEDS ORDERED: BISACODYL 5 MG TABLET PO PRN (00:03)
[2018-07-23 00:19] LABS: Apearance,Urine Slightly Hazy (Clear); Bacteria,Urine Occasional /HPF (Few); Bilirubin,Urine Negative (Negative); Blood, Urine Moderate mg/dL (Negative); Glucose,Urine (UA) Negative (Negative); Hyaline Casts,Urine 18 /LPF (0-3); Ketones,Urine Negative (Negative); Mucus,Urine Occasional /LPF (Occasional); Nitrite,Urine Negative (Negative); Protein,Urine 100 MG/DL; Squamous Epithelial Cell,Urine Occasional /HPF (0-10); Urine Color Yellow (Yellow); Urine Specific Gravity 1.016 (1.001-1.035); Urine Urobilinogen < 2.0 EU/DL (0.2-1.0); WBC,Urine 3 /HPF (0-6)
[2018-07-23] MEDS ORDERED: SODIUM CHLORIDE 0.9% 1,000 ML IV PRN (00:22)
[2018-07-23] MEDS ORDERED: MORPHINE ER 15 MG TABLET PO SCH (00:30)
[2018-07-23] MEDS ORDERED: DOCUSATE SODIUM 100 MG CAPSULE PO SCH (00:30)
[2018-07-23] MEDS ORDERED: DEXTROSE 50% 25 GM/50 ML SYRINGE IV ONE (00:54)
[2018-07-23] MEDS ORDERED: ACETAMINOPHEN 650 MG SUPP RECTAL ONE ×2 (01:06→01:30)
[2018-07-23 01:54] LABS: Burr Cells Few; Lymphocytes 79 % (20-55); Platelet Estimate Decreased; Segmented Neutrophils 19 % (50-85); Tear Drop Cells 1+; Total Cells Counted 100
[2018-07-23 01:56] LABS: Immature Granulocytes % 6.7 %; Immature Granulocytes Absolute 0.01 #; Lymphocytes # 0.1 10*3/uL (1.4-4.0); Lymphocytes % 66.7 % (21.2-54.2); Mean Corpuscular HGB Conc 31.3 GM/DL (32-36); Mean Corpuscular Hemoglobin 23 PG (27-34); Mean Corpuscular Volume 73.6 FL (87-102); Monocytes % 6.7 % (1.7-12.7); Neutrophils % 19.9 % (38.7-73.9); Red Blood Count 1.78 MC/CUMM (3.8-5.5); Red Cell Distribution Width 18.2 % (9.3-17.3)
[2018-07-23 02:03] LABS: White Blood Count 0.2 T/CUMM (4-12)
[2018-07-23 02:04] LABS: Hematocrit 13.1 VOL% (42.0-52.0); Hemoglobin 4.1 GM/DL (14.0-18.0)
[2018-07-23 02:05] LABS: Platelet Count 5 T/CUMM (130-400)
[2018-07-23 02:25] LABS: Ammonia < 10 UMOL/L (11-32)
[2018-07-23 02:28] LABS: INR 1.7; PT Patient Result 17.5 SECS; Partial Thromboplastin Time 37.3 SECS (0-40)
[2018-07-23 02:29] LABS: Alanine Aminotransferase 35 U/L (16-61); Alkaline Phosphatase 77 U/L (45-117); Aspartate Amino Transferase 82 U/L (0-37); Blood Urea Nitrogen 111 MG/DL (7-18); CKMB % 0.9 %; Calcium 9.2 MG/DL (8.5-10.1); Glucose 150 MG/DL (74-106); Osmolality,Calculated 320.1 MOS/KG (273-304); Potassium 5.4 MMOL/L (3.5-5.1); Sodium 142 MMOL/L (136-145); Total Protein 7.1 G/DL (6.4-8.3)
[2018-07-23] MEDS: SODIUM CHLORIDE 0.9% 1,000 ML IV SCH ×2 (02:30→09:14)
[2018-07-23 03:01] LABS: Lymphocytes 69 % (20-55); Platelet Estimate Decreased; Segmented Neutrophils 27 % (50-85); Total Cells Counted 100
[2018-07-23 03:02] LABS: Burr Cells Few; Microcytosis 1+; Ovalocytes Few; Tear Drop Cells 1+
[2018-07-23] MEDS: SODIUM BICARB INJ 50 MEQ in DEXTROSE 5% 1,000 ML IV SCH ×3 (03:17→17:46)
[2018-07-23] MEDS ORDERED: LEVOFLOXACIN INJ 750 MG in PREMIX 1 EACH IV ONE (06:00)
[2018-07-23] MEDS ORDERED: VANCOMYCIN INJ 1,000 MG in SODIUM CHLORIDE 0.9% 250 ML IV ONE ×2 (06:00→07:30)
[2018-07-23] MEDS: PIPERACILLIN/TAZOBACTAM 3,375 MG in SODIUM CHLORIDE 0.9% 100 ML IV SCH ×2 (06:21→17:45)
[2018-07-23] MEDS ORDERED: metFORMIN 500 MG TABLET PO SCH (08:00)
[2018-07-23] MEDS ORDERED: METOPROLOL SUCCINATE XL 25 MG TABLET PO SCH (09:00)
[2018-07-23] MEDS ORDERED: FOLIC ACID 1 MG TABLET PO SCH (09:00)
[2018-07-23] MEDS ORDERED: FILGRASTIM-SNDZ 300 MCG/0.5 ML SYRINGE SUBCUT SCH (09:00)
[2018-07-23] MEDS ORDERED: PANTOPRAZOLE 40 MG TABLET PO SCH (09:00)
[2018-07-23] MEDS: PANTOPRAZOLE 40 MG VIAL IV SCH (09:13)
[2018-07-23] MEDS: FILGRASTIM-SNDZ 480 MCG/0.8 ML SYRINGE SUBCUT SCH (09:13)
[2018-07-23 10:25] LABS: Immature Granulocytes % 27.3 %; Immature Granulocytes Absolute 0.03 #; Lymphocytes # 0.1 10*3/uL (1.4-4.0); Lymphocytes % 45.5 % (21.2-54.2); Mean Corpuscular Hemoglobin 24 PG (27-34); Mean Corpuscular Volume 75.7 FL (87-102); Monocytes % 9.1 % (1.7-12.7); Neutrophils % 18.1 % (38.7-73.9); Red Blood Count 2.35 MC/CUMM (3.8-5.5); Red Cell Distribution Width 18.6 % (9.3-17.3)
[2018-07-23 10:30] LABS: White Blood Count 0.1 T/CUMM (4-12)
[2018-07-23 10:31] LABS: Hematocrit 17.8 VOL% (42.0-52.0); Hemoglobin 5.7 GM/DL (14.0-18.0); Platelet Count 57 T/CUMM (130-400)
[2018-07-23 10:44] LABS: Calcium 7.9 MG/DL (8.5-10.1); Osmolality,Calculated 320.1 MOS/KG (273-304); Potassium 4.9 MMOL/L (3.5-5.1)
[2018-07-23 11:09] LABS: Eosinophils 7 % (0-10); Hypochromasia 1+; Lymphocytes 53 % (20-55); Microcytosis 1+; Ovalocytes Slight; Segmented Neutrophils 20 % (50-85); Total Cells Counted 100
[2018-07-23 11:10] LABS: Platelet Estimate Decreased
[2018-07-23] MEDS: MORPHINE 4 MG/1 ML VIAL IV PRN ×3 (12:29→22:35)
[2018-07-23] MEDS: SKIN HEALING OINT (AQUAPHOR) 50 GM TUBE TOP SCH (12:29)
[2018-07-23 16:57] LABS: Hematocrit 27.9 VOL% (42.0-52.0); Immature Granulocytes % 9.1 %; Immature Granulocytes Absolute 0.01 #; Lymphocytes # 0.1 10*3/uL (1.4-4.0); Lymphocytes % 45.5 % (21.2-54.2); Mean Corpuscular HGB Conc 32.6 GM/DL (32-36); Mean Corpuscular Hemoglobin 26 PG (27-34); Mean Corpuscular Volume 79.3 FL (87-102); Monocytes % 9.1 % (1.7-12.7); Neutrophils % 36.3 % (38.7-73.9); Platelet Count 55 T/CUMM (130-400); Red Cell Distribution Width 19.6 % (9.3-17.3)
[2018-07-23 17:14] LABS: Blood Urea Nitrogen 103 MG/DL (7-18); Calcium 7.4 MG/DL (8.5-10.1); Glucose 140 MG/DL (74-106); Osmolality,Calculated 319.8 MOS/KG (273-304); Potassium 4.7 MMOL/L (3.5-5.1); Sodium 144 MMOL/L (136-145)
[2018-07-23 17:27] LABS: Lactic Acid 2.9 MMOL/L (0.4-2.0)
[2018-07-23 17:50] LABS: White Blood Count 0.1 T/CUMM (4-12)
[2018-07-23 17:51] LABS: Hemoglobin 9.1 GM/DL (14.0-18.0); Red Blood Count 3.52 MC/CUMM (3.8-5.5)
[2018-07-23 18:13] LABS: Anisocytosis 1+; Eosinophils 10 % (0-10); Lymphocytes 55 % (20-55); Segmented Neutrophils 10 % (50-85); Total Cells Counted 100
[2018-07-23 18:14] LABS: Ovalocytes Few; Poikilocytosis 1+
[2018-07-23] MEDS ORDERED: SODIUM CHLORIDE 0.9% 1,000 ML IV ONE (19:59)
[2018-07-23] MEDS: NOREPINEPHRINE 8 MG in SODIUM CHLORIDE 0.9% 242 ML IV PRN (23:05)
[2018-07-24] MEDS: SODIUM BICARB INJ 50 MEQ in DEXTROSE 5% 1,000 ML IV SCH ×3 (04:23→14:41)
[2018-07-24 04:55] LABS: Eosinophils % 6.3 % (0.00-10.9); Hematocrit 24.3 VOL% (42.0-52.0); Hemoglobin 8.6 GM/DL (14.0-18.0); Immature Granulocytes Absolute 0.04 #; Lymphocytes # 0.1 10*3/uL (1.4-4.0); Lymphocytes % 43.8 % (21.2-54.2); Mean Corpuscular HGB Conc 35.4 GM/DL (32-36); Mean Corpuscular Hemoglobin 26 PG (27-34); Mean Corpuscular Volume 73.4 FL (87-102); Monocytes % 18.8 % (1.7-12.7); Neutrophils % 6.1 % (38.7-73.9); Red Blood Count 3.31 MC/CUMM (3.8-5.5); Red Cell Distribution Width 19.1 % (9.3-17.3)
[2018-07-24 05:10] LABS: Calcium 7.3 MG/DL (8.5-10.1); Osmolality,Calculated 318.1 MOS/KG (273-304); Platelet Count 41 T/CUMM (130-400); Potassium 4.9 MMOL/L (3.5-5.1); White Blood Count 0.2 T/CUMM (4-12)
[2018-07-24 05:25] LABS: Eosinophils 10 % (0-10); Hypochromasia 1+; Lymphocytes 70 % (20-55); Microcytosis Slight; Ovalocytes Slight; Platelet Estimate Decreased; Total Cells Counted 100
[2018-07-24] MEDS: PIPERACILLIN/TAZOBACTAM 3,375 MG in SODIUM CHLORIDE 0.9% 100 ML IV SCH ×2 (05:57→18:30)
[2018-07-24] MEDS: NOREPINEPHRINE 8 MG in SODIUM CHLORIDE 0.9% 242 ML IV PRN (08:01)
[2018-07-24] MEDS: MORPHINE 4 MG/1 ML VIAL IV PRN ×2 (08:40→16:00)
[2018-07-24] MEDS: PANTOPRAZOLE 40 MG VIAL IV SCH (08:41)
[2018-07-24] MEDS: FILGRASTIM-SNDZ 480 MCG/0.8 ML SYRINGE SUBCUT SCH (08:41)
[2018-07-24] MEDS: SKIN HEALING OINT (AQUAPHOR) 50 GM TUBE TOP SCH (09:59)
[2018-07-25] MEDS: SODIUM BICARB INJ 50 MEQ in DEXTROSE 5% 1,000 ML IV SCH ×2 (00:43→11:50)
[2018-07-25] MEDS: MORPHINE 4 MG/1 ML VIAL IV PRN ×5 (01:59→22:48)
[2018-07-25] MEDS ORDERED: SODIUM CHLORIDE 0.9% 250 ML IV ONE (02:48)
[2018-07-25] MEDS: LEVOFLOXACIN INJ 500 MG in PREMIX 1 EACH IV SCH (06:10)
[2018-07-25] MEDS: PIPERACILLIN/TAZOBACTAM 3,375 MG in SODIUM CHLORIDE 0.9% 100 ML IV SCH ×2 (06:12→17:28)
[2018-07-25] MEDS: PANTOPRAZOLE 40 MG VIAL IV SCH (08:50)
[2018-07-25] MEDS: SKIN HEALING OINT (AQUAPHOR) 50 GM TUBE TOP SCH (08:52)
[2018-07-25] MEDS: FILGRASTIM-SNDZ 480 MCG/0.8 ML SYRINGE SUBCUT SCH (09:33)
[2018-07-25 12:09] LABS: Hemoglobin 7.3 GM/DL (14.0-18.0); Immature Granulocytes % 5.3 %; Immature Granulocytes Absolute 0.01 #; Lymphocytes # 0.1 10*3/uL (1.4-4.0); Lymphocytes % 42.1 % (21.2-54.2); Mean Corpuscular HGB Conc 34.8 GM/DL (32-36); Mean Corpuscular Hemoglobin 26 PG (27-34); Mean Corpuscular Volume 74.2 FL (87-102); Monocytes % 10.5 % (1.7-12.7); Neutrophils # 0.1 10*3/uL (1.4-7.4); Neutrophils % 42.1 % (38.7-73.9); Red Blood Count 2.83 MC/CUMM (3.8-5.5); Red Cell Distribution Width 19.7 % (9.3-17.3)
[2018-07-25 12:14] LABS: Platelet Count 16 T/CUMM (130-400); White Blood Count 0.2 T/CUMM (4-12)
[2018-07-25 12:18] LABS: Osmolality,Calculated 317.5 MOS/KG (273-304); Potassium 4.5 MMOL/L (3.5-5.1)
[2018-07-25 12:29] LABS: Hypochromasia 1+; Lymphocytes 60 % (20-55); Ovalocytes Slight; Platelet Estimate Decreased; Total Cells Counted 100
[2018-07-25 12:30] LABS: Microcytosis Slight
[2018-07-25] MEDS ORDERED: SODIUM CHLORIDE 0.9% 1,000 ML IV PRN (13:36)
[2018-07-25] MEDS: ONDANSETRON 4 MG/2 ML VIAL IV PRN (17:26)
[2018-07-26 02:49] LABS: Hematocrit 24.6 VOL% (42.0-52.0); Hemoglobin 8.6 GM/DL (14.0-18.0); Immature Granulocytes % 14.3 %; Immature Granulocytes Absolute 0.03 #; Lymphocytes # 0.1 10*3/uL (1.4-4.0); Lymphocytes % 38.1 % (21.2-54.2); Mean Corpuscular Hemoglobin 27 PG (27-34); Mean Corpuscular Volume 77.4 FL (87-102); Monocytes % 4.8 % (1.7-12.7); Neutrophils # 0.1 10*3/uL (1.4-7.4); Neutrophils % 42.8 % (38.7-73.9); Red Blood Count 3.18 MC/CUMM (3.8-5.5); Red Cell Distribution Width 19.8 % (9.3-17.3)
[2018-07-26 02:54] LABS: White Blood Count 0.2 T/CUMM (4-12)
[2018-07-26 02:55] LABS: Platelet Count 36 T/CUMM (130-400)
[2018-07-26 03:01] LABS: Calcium 7.3 MG/DL (8.5-10.1); Osmolality,Calculated 314.5 MOS/KG (273-304); Potassium 4.3 MMOL/L (3.5-5.1)
[2018-07-26] MEDS: PIPERACILLIN/TAZOBACTAM 3,375 MG in SODIUM CHLORIDE 0.9% 100 ML IV SCH ×2 (05:43→17:50)
[2018-07-26] MEDS: SODIUM BICARB INJ 50 MEQ in DEXTROSE 5% 1,000 ML IV SCH ×2 (06:02→16:31)
[2018-07-26 07:27] LABS: Anisocytosis 2+; Band Neutrophils 19 % (0-10); Hypochromasia 2+; Lymphocytes 31 % (20-55); Nucleated Red Blood Cells 1 (0-5); Platelet Estimate Decreased; Segmented Neutrophils 44 % (50-85); Total Cells Counted 100
[2018-07-26 07:28] LABS: Microcytosis 2+; Ovalocytes Few
[2018-07-26] MEDS: PANTOPRAZOLE 40 MG VIAL IV SCH (08:26)
[2018-07-26] MEDS: FILGRASTIM-SNDZ 480 MCG/0.8 ML SYRINGE SUBCUT SCH (08:30)
[2018-07-26] MEDS ORDERED: GLUCAGON 1 MG VIAL IM PRN (10:52)
[2018-07-26] MEDS ORDERED: DEXTROSE 50% 25 GM/50 ML VIAL IV PRN (10:52)
[2018-07-26] MEDS: SKIN HEALING OINT (AQUAPHOR) 50 GM TUBE TOP SCH (14:24)
[2018-07-26] MEDS: MORPHINE 4 MG/1 ML VIAL IV PRN (17:52)
[2018-07-27] MEDS ORDERED: NOREPINEPHRINE 4 MG/4 ML VIAL IV ONE (02:14)
[2018-07-27] MEDS: NOREPINEPHRINE 8 MG in SODIUM CHLORIDE 0.9% 242 ML IV PRN ×3 (02:38→20:49)
[2018-07-27 03:09] LABS: Eosinophils % 4.2 % (0.00-10.9); Hematocrit 25.6 VOL% (42.0-52.0); Hemoglobin 9.1 GM/DL (14.0-18.0); Immature Granulocytes % 12.5 %; Immature Granulocytes Absolute 0.03 #; Lymphocytes # 0.1 10*3/uL (1.4-4.0); Lymphocytes % 33.3 % (21.2-54.2); Mean Corpuscular HGB Conc 35.5 GM/DL (32-36); Mean Corpuscular Hemoglobin 27 PG (27-34); Mean Corpuscular Volume 74.6 FL (87-102); Monocytes % 4.2 % (1.7-12.7); Neutrophils # 0.1 10*3/uL (1.4-7.4); Neutrophils % 45.8 % (38.7-73.9); Red Blood Count 3.43 MC/CUMM (3.8-5.5); Red Cell Distribution Width 19.8 % (9.3-17.3)
[2018-07-27 03:14] LABS: Platelet Count 17 T/CUMM (130-400); White Blood Count 0.2 T/CUMM (4-12)
[2018-07-27 03:35] LABS: Calcium 7.4 MG/DL (8.5-10.1); Osmolality,Calculated 315.8 MOS/KG (273-304); Potassium 3.9 MMOL/L (3.5-5.1)
[2018-07-27 04:02] LABS: Lymphocytes 44 % (20-55); Segmented Neutrophils 36 % (50-85)
[2018-07-27 04:45] LABS: Hypochromasia 1+; Platelet Estimate Decreased; Target Cells Few
[2018-07-27 04:46] LABS: Elliptocytes Few; Microcytosis 2+
[2018-07-27] MEDS: SODIUM BICARB INJ 50 MEQ in DEXTROSE 5% 1,000 ML IV SCH ×3 (04:46→17:58)
[2018-07-27 04:47] LABS: Total Cells Counted 100
[2018-07-27] MEDS: MORPHINE 4 MG/1 ML VIAL IV PRN (04:47)
[2018-07-27] MEDS: PIPERACILLIN/TAZOBACTAM 3,375 MG in SODIUM CHLORIDE 0.9% 100 ML IV SCH ×2 (05:51→17:45)
[2018-07-27] MEDS: LEVOFLOXACIN INJ 500 MG in PREMIX 1 EACH IV SCH (07:09)
[2018-07-27] MEDS: PANTOPRAZOLE 40 MG VIAL IV SCH (08:47)
[2018-07-27] MEDS: FILGRASTIM-SNDZ 480 MCG/0.8 ML SYRINGE SUBCUT SCH (08:48)
[2018-07-27] MEDS: SKIN HEALING OINT (AQUAPHOR) 50 GM TUBE TOP SCH (08:54)
[2018-07-27] MEDS: INSULIN REGULAR 100 UNIT/ML SUBCUT SCH ×2 (12:27→17:45)
[2018-07-27] MEDS: ONDANSETRON 4 MG/2 ML VIAL IV PRN (19:37)
[2018-07-28] MEDS: INSULIN REGULAR 100 UNIT/ML SUBCUT SCH ×4 (01:17→17:54)
[2018-07-28] MEDS: SODIUM BICARB INJ 50 MEQ in DEXTROSE 5% 1,000 ML IV SCH (03:55)
[2018-07-28 04:09] LABS: Blood Urea Nitrogen 120 MG/DL (7-18); Calcium 7.1 MG/DL (8.5-10.1); Glucose 190 MG/DL (74-106); Osmolality,Calculated 317.7 MOS/KG (273-304); Potassium 2.7 MMOL/L (3.5-5.1); Prealbumin < 3.0 MG/DL (20-40); Sodium 138 MMOL/L (136-145)
[2018-07-28] MEDS: PIPERACILLIN/TAZOBACTAM 3,375 MG in SODIUM CHLORIDE 0.9% 100 ML IV SCH ×2 (06:58→17:56)
[2018-07-28] MEDS: PANTOPRAZOLE 40 MG VIAL IV SCH (08:10)
[2018-07-28] MEDS: MORPHINE 4 MG/1 ML VIAL IV PRN ×4 (08:19→21:46)
[2018-07-28] MEDS ORDERED: MAGNESIUM SULF RIDER 2 GM in PREMIX 1 EACH IV ONE (08:44)
[2018-07-28] MEDS: FILGRASTIM-SNDZ 480 MCG/0.8 ML SYRINGE SUBCUT SCH (09:07)
[2018-07-28] MEDS: SKIN HEALING OINT (AQUAPHOR) 50 GM TUBE TOP SCH (09:11)
[2018-07-28 10:22] LABS: Hematocrit 24.9 VOL% (42.0-52.0); Hemoglobin 8.5 GM/DL (14.0-18.0); Immature Granulocytes Absolute 0.03 #; Lymphocytes # 0.1 10*3/uL (1.4-4.0); Mean Corpuscular HGB Conc 34.1 GM/DL (32-36); Mean Corpuscular Hemoglobin 26 PG (27-34); Mean Corpuscular Volume 76.1 FL (87-102); Neutrophils # 0.1 10*3/uL (1.4-7.4); Red Blood Count 3.27 MC/CUMM (3.8-5.5); Red Cell Distribution Width 19.9 % (9.3-17.3)
[2018-07-28 10:24] LABS: White Blood Count 0.3 T/CUMM (4-12)
[2018-07-28 10:25] LABS: Platelet Count 12 T/CUMM (130-400)
[2018-07-28 10:50] LABS: Hypochromasia 1+; Lymphocytes 27 % (20-55); Microcytosis 1+; Segmented Neutrophils 60 % (50-85); Total Cells Counted 100
[2018-07-28 10:52] LABS: Platelet Estimate Decreased
[2018-07-28] MEDS: SODIUM BICARB INJ 50 MEQ, POTASSIUM CHLORIDE INJ 20 MEQ in DEXTROSE 5% 1,000 ML IV SCH ×2 (11:00→21:56)
[2018-07-28] MEDS: NOREPINEPHRINE 8 MG in SODIUM CHLORIDE 0.9% 242 ML IV PRN (11:08)
[2018-07-28] MEDS ORDERED: AMIODARONE INJ 150 MG in DEXTROSE 5% 100 ML IV ONE ×2 (15:21→18:00)
[2018-07-28] MEDS ORDERED: AMIODARONE 150 MG/3 ML VIAL ONE (15:32)
[2018-07-28] MEDS: PHENYLEPHRINE DRIP 40 MG/250 ML PREMIX IV PRN ×2 (16:29→23:10)
[2018-07-29] MEDS: INSULIN REGULAR 100 UNIT/ML SUBCUT SCH ×4 (00:45→18:24)
[2018-07-29] MEDS: MORPHINE 4 MG/1 ML VIAL IV PRN (03:05)
[2018-07-29] MEDS: PHENYLEPHRINE DRIP 40 MG/250 ML PREMIX IV PRN ×4 (04:17→19:23)
[2018-07-29 04:18] LABS: Eosinophils % 6.7 % (0.00-10.9); Hematocrit 26.2 VOL% (42.0-52.0); Hemoglobin 9.4 GM/DL (14.0-18.0); Mean Corpuscular HGB Conc 35.9 GM/DL (32-36); Mean Corpuscular Hemoglobin 26 PG (27-34); Mean Corpuscular Volume 73.4 FL (87-102); Monocytes % 13.3 % (1.7-12.7); NRBC # 0.07 10*3/uL; Neutrophils # 0.1 10*3/uL (1.4-7.4); Red Blood Count 3.57 MC/CUMM (3.8-5.5); Red Cell Distribution Width 19.9 % (9.3-17.3)
[2018-07-29 04:30] LABS: Platelet Count 31 T/CUMM (130-400); White Blood Count 0.2 T/CUMM (4-12)
[2018-07-29 04:59] LABS: Calcium 7.1 MG/DL (8.5-10.1); Osmolality,Calculated 317.1 MOS/KG (273-304); Potassium 3.1 MMOL/L (3.5-5.1)
[2018-07-29 05:12] LABS: Eosinophils 10 % (0-10); Hypochromasia 1+; Lymphocytes 40 % (20-55); Microcytosis 1+; Platelet Estimate Decreased; Segmented Neutrophils 30 % (50-85); Total Cells Counted 100
[2018-07-29] MEDS: LEVOFLOXACIN INJ 500 MG in PREMIX 1 EACH IV SCH (05:30)
[2018-07-29] MEDS: PIPERACILLIN/TAZOBACTAM 3,375 MG in SODIUM CHLORIDE 0.9% 100 ML IV SCH ×2 (06:18→18:24)
[2018-07-29] MEDS: SODIUM BICARB INJ 50 MEQ, POTASSIUM CHLORIDE INJ 20 MEQ in DEXTROSE 5% 1,000 ML IV SCH ×4 (08:12→18:56)
[2018-07-29] MEDS: PANTOPRAZOLE 40 MG VIAL IV SCH (08:27)
[2018-07-29] MEDS: SKIN HEALING OINT (AQUAPHOR) 50 GM TUBE TOP SCH (08:28)
[2018-07-29] MEDS: FILGRASTIM-SNDZ 480 MCG/0.8 ML SYRINGE SUBCUT SCH (08:28)
[2018-07-30] MEDS: INSULIN REGULAR 100 UNIT/ML SUBCUT SCH ×4 (00:05→18:27)
[2018-07-30] MEDS: PHENYLEPHRINE DRIP 40 MG/250 ML PREMIX IV PRN ×5 (00:06→20:01)
[2018-07-30 04:27] LABS: Eosinophils % 7.7 % (0.00-10.9); Hematocrit 23.5 VOL% (42.0-52.0); Hemoglobin 8.5 GM/DL (14.0-18.0); Lymphocytes # 0.1 10*3/uL (1.4-4.0); Lymphocytes % 38.5 % (21.2-54.2); Mean Corpuscular HGB Conc 36.2 GM/DL (32-36); Mean Corpuscular Hemoglobin 27 PG (27-34); Mean Corpuscular Volume 73.9 FL (87-102); Monocytes % 7.7 % (1.7-12.7); Neutrophils # 0.1 10*3/uL (1.4-7.4); Neutrophils % 46.1 % (38.7-73.9); Red Blood Count 3.18 MC/CUMM (3.8-5.5); Red Cell Distribution Width 20.6 % (9.3-17.3)
[2018-07-30 04:32] LABS: Platelet Count 14 T/CUMM (130-400)
[2018-07-30 04:33] LABS: White Blood Count 0.1 T/CUMM (4-12)
[2018-07-30 04:55] LABS: Eosinophils 20 % (0-10); Hypochromasia 1+; Lymphocytes 40 % (20-55); Microcytosis 1+; Ovalocytes Slight; Segmented Neutrophils 40 % (50-85); Total Cells Counted 100
[2018-07-30 04:56] LABS: Platelet Estimate Decreased; Spherocytes Slight
[2018-07-30 05:01] LABS: Calcium 7.1 MG/DL (8.5-10.1); Osmolality,Calculated 328.3 MOS/KG (273-304); Potassium 2.6 MMOL/L (3.5-5.1)
[2018-07-30] MEDS: PIPERACILLIN/TAZOBACTAM 3,375 MG in SODIUM CHLORIDE 0.9% 100 ML IV SCH ×2 (05:12→18:27)
[2018-07-30] MEDS: SODIUM BICARB INJ 50 MEQ, POTASSIUM CHLORIDE INJ 20 MEQ in DEXTROSE 5% 1,000 ML IV SCH ×2 (06:05→16:45)
[2018-07-30 08:18] LABS: Eosinophils % 7.7 % (0.00-10.9); Hematocrit 23.6 VOL% (42.0-52.0); Hemoglobin 8.5 GM/DL (14.0-18.0); Immature Granulocytes % 15.4 %; Immature Granulocytes Absolute 0.02 #; Lymphocytes # 0.1 10*3/uL (1.4-4.0); Lymphocytes % 46.2 % (21.2-54.2); Mean Corpuscular Hemoglobin 27 PG (27-34); Mean Corpuscular Volume 74.2 FL (87-102); Monocytes % 7.7 % (1.7-12.7); Red Blood Count 3.18 MC/CUMM (3.8-5.5); Red Cell Distribution Width 20.7 % (9.3-17.3)
[2018-07-30 08:22] LABS: White Blood Count 0.1 T/CUMM (4-12)
[2018-07-30 08:23] LABS: Platelet Count 51 T/CUMM (130-400)
[2018-07-30 08:44] LABS: Hypochromasia 1+; Lymphocytes 70 % (20-55); Microcytosis 1+; Ovalocytes Slight; Platelet Estimate Decreased; Segmented Neutrophils 20 % (50-85); Total Cells Counted 100
[2018-07-30] MEDS: PANTOPRAZOLE 40 MG VIAL IV SCH (09:12)
[2018-07-30] MEDS: SKIN HEALING OINT (AQUAPHOR) 50 GM TUBE TOP SCH (09:12)
[2018-07-30] MEDS: MORPHINE 4 MG/1 ML VIAL IV PRN ×2 (09:14→20:04)
[2018-07-30] MEDS: FILGRASTIM-SNDZ 480 MCG/0.8 ML SYRINGE SUBCUT SCH (09:14)
[2018-07-30] MEDS: POTASSIUM CHLORIDE 20 MEQ/15 ML UDCUP PER TUBE SCH ×3 (12:49→20:04)
[2018-07-31] MEDS: MORPHINE 4 MG/1 ML VIAL IV PRN ×5 (00:25→23:57)
[2018-07-31] MEDS: POTASSIUM CHLORIDE 20 MEQ/15 ML UDCUP PER TUBE SCH (00:29)
[2018-07-31] MEDS: INSULIN REGULAR 100 UNIT/ML SUBCUT SCH ×3 (00:29→11:53)
[2018-07-31] MEDS: PHENYLEPHRINE DRIP 40 MG/250 ML PREMIX IV PRN ×4 (00:31→16:06)
[2018-07-31] MEDS ORDERED: POTASSIUM CHLORIDE RIDER 10 MEQ in PREMIX 1 EACH IV PRN (02:15)
[2018-07-31] MEDS: SKIN HEALING OINT (AQUAPHOR) 50 GM TUBE TOP SCH ×2 (03:15→08:46)
[2018-07-31 03:53] LABS: Prealbumin < 3.0 MG/DL (20-40)
[2018-07-31] MEDS ORDERED: MAGNESIUM SULF RIDER 4 GM in PREMIX 1 EACH IV PRN (05:06)
[2018-07-31] MEDS ORDERED: MAGNESIUM SULF RIDER 2 GM in PREMIX 1 EACH IV PRN (05:06)
[2018-07-31] MEDS: SODIUM BICARB INJ 50 MEQ, POTASSIUM CHLORIDE INJ 20 MEQ in DEXTROSE 5% 1,000 ML IV SCH ×2 (05:14→16:01)
[2018-07-31] MEDS: LEVOFLOXACIN INJ 500 MG in PREMIX 1 EACH IV SCH (05:15)
[2018-07-31] MEDS: PIPERACILLIN/TAZOBACTAM 3,375 MG in SODIUM CHLORIDE 0.9% 100 ML IV SCH (06:10)
[2018-07-31] MEDS: FILGRASTIM-SNDZ 480 MCG/0.8 ML SYRINGE SUBCUT SCH (08:39)
[2018-07-31] MEDS: PANTOPRAZOLE 40 MG VIAL IV SCH (08:39)
[2018-07-31 10:10] LABS: Hematocrit 23.7 VOL% (42.0-52.0); Hemoglobin 8.4 GM/DL (14.0-18.0); Immature Granulocytes % 8.3 %; Immature Granulocytes Absolute 0.01 #; Lymphocytes # 0.1 10*3/uL (1.4-4.0); Lymphocytes % 41.7 % (21.2-54.2); Mean Corpuscular HGB Conc 35.4 GM/DL (32-36); Mean Corpuscular Hemoglobin 27 PG (27-34); Mean Corpuscular Volume 74.8 FL (87-102); Monocytes % 16.7 % (1.7-12.7); Neutrophils % 33.3 % (38.7-73.9); Red Blood Count 3.17 MC/CUMM (3.8-5.5); Red Cell Distribution Width 20.7 % (9.3-17.3)
[2018-07-31 10:17] LABS: White Blood Count 0.1 T/CUMM (4-12)
[2018-07-31 10:18] LABS: Platelet Count 19 T/CUMM (130-400)
[2018-07-31] MEDS ORDERED: SODIUM CHLORIDE 0.9% 1,000 ML IV PRN (10:28)
[2018-07-31 10:31] LABS: Eosinophils 20 % (0-10); Hypochromasia 1+; Lymphocytes 30 % (20-55); Microcytosis 1+; Segmented Neutrophils 40 % (50-85); Total Cells Counted 100
[2018-07-31 10:32] LABS: Anisocytosis 1+; Burr Cells Slight
[2018-07-31 10:33] LABS: Ovalocytes Slight; Platelet Estimate Decreased
[2018-07-31 10:42] LABS: Albumin 1.2 G/DL (3.4-5.0); Bilirubin,Total 2.7 MG/DL (0.2-1.0); Calcium 7.4 MG/DL (8.5-10.1); Osmolality,Calculated 327.4 MOS/KG (273-304); Potassium 2.7 MMOL/L (3.5-5.1); Total Protein 5.6 G/DL (6.4-8.3)
[2018-08-01] MEDS: SODIUM BICARB INJ 50 MEQ, POTASSIUM CHLORIDE INJ 20 MEQ in DEXTROSE 5% 1,000 ML IV SCH (02:03)
[2018-08-01] MEDS: MORPHINE 4 MG/1 ML VIAL IV PRN (02:44)
[2018-08-01 04:41] VITALS: BP 47/29
== END 2018-08-01 04:09 | disposition expired | DRG 871 ==
LOC: EDBD → EDUNIT# → N.ED 20:20 → N.EDINP 07-23 00:03 → SUATTDRO 07-23 00:04 → N.CC 07-23 04:29
PROVIDERS: ATTEND Internal Medicine